=== PATIENT | female | born 1970 | race Asian ===

== ENCOUNTER 2016-12-18 11:16 | Day surgery (SDC) | payer OTHER ==
--- NOTE | 2016-12-10 10:28 | HP ---
Admitting History and Physical - Primary Care Physician PCP: Mich Balderas - Admission Chief Complaint: right breast cancer History of Present Illness: 46 yo female s/p neoadjuvant chemo and right WE, snbx 03/2016, presents now for removal of infusaport. Mammo and US done 10/22/2016 were c/w postop changes without suspicious findings. History Source: Patient Limitations to Obtaining History: No Limitations - Past Medical History Cardiovascular: Yes: HTN ...LMP: 10/05/15 Heme/Onc: Yes: Cancer (right breast cancer 08/2015) - Past Surgical History Past Surgical History: Yes: Hernia Repair (umbilical hernia repair 06/2015) - Smoking History Smoking history: Never smoked Have you smoked in the past 12 months: No - Alcohol/Substance Use Hx Alcohol Use: Yes (RARE) Home Medications - Allergies Allergies/Adverse Reactions: Allergies Allergy/AdvReac Type Severity Reaction Status Date / Time No Known Drug Allergies Allergy Verified 07/20/15 07:11 ENVIRONMENTAL Allergy Intermediate NASAL Uncoded 07/20/15 07:11 CONGESTION/SNEEZING - Home Medications Home Medications: Ambulatory Orders Metoprolol Tartrate 12.5 mg PO DAILY 10/12/15 Family Disease History - Family Disease History Family Disease History: CA: Father (prostate) Other Family History: paternal uncle-CRC Review of Systems - Review of Systems Constitutional: reports: No Symptoms Cardiovascular: reports: No Symptoms Respiratory: reports: No Symptoms Physical Examination Constitutional: Yes: Well Nourished Cardiovascular: Yes: WNL Respiratory: Yes: WNL Breast(s): Yes: Other (Right breast with well healed incision. No suspicious masses or adenopathy noted bilaterally.) Problem List - Problems (1) Breast cancer, right Code(s): C50.911 - MALIGNANT NEOPLASM OF UNSP SITE OF RIGHT FEMALE BREAST Qualifiers: Breast location: lower inner quadrant of breast Qualified Code(s): C50.311 - Malignant neoplasm of lower-inner quadrant of right female breast; Z17.0 - Estrogen receptor positive status [ER+] Assessment/Plan Plan removal of lifeport
[2016-12-13 09:13] VITALS: BMI 23.8
[2016-12-18] MEDS ORDERED: LIDOCAINE HCL 1%, 10 MG/ML (20ML VIAL) ONE (12:51)
[2016-12-18] MEDS ORDERED: MIDAZOLAM HCL 2 MG/2 ML SINGLE DOSE VIAL ONE (13:29)
[2016-12-18] MEDS ORDERED: PROPOFOL 20 ML ONE (13:29)
[2016-12-18] MEDS ORDERED: ONDANSETRON 4 MG/2 ML VIAL ONE (13:36)
[2016-12-18] MEDS ORDERED: KETOROLAC TROMETHAMINE 30 MG/1 ML VIAL ONE (13:36)
[2016-12-18] MEDS ORDERED: DEXAMETHASONE SOD PHOSPHATE 4 MG/1 ML VIAL ONE (13:36)
[2016-12-18] MEDS ORDERED: ONDANSETRON 4 MG/2 ML VIAL IVPB PRN (14:24)
[2016-12-18] MEDS ORDERED: KETOROLAC TROMETHAMINE 30 MG/1 ML VIAL IVPUSH PRN (14:24)
[2016-12-18] MEDS ORDERED: DEXTROSE 5%-0.45% SALINE 1,000 ML IV SCH (14:30)
[2016-12-18 15:02] VITALS: BP 111/72; PULSE 51
[2016-12-18 15:37] VITALS: TEMP 98
--- NOTE | 2016-12-19 07:14 | OP ---
DATE OF OPERATION: 12/18/2016 PREOPERATIVE DIAGNOSIS: History of right lower outer quadrant breast cancer status post partial mastectomy and chemotherapy. POSTOPERATIVE DIAGNOSIS: History of right lower outer quadrant breast cancer status post partial mastectomy and chemotherapy. PROCEDURE: Removal of a left-sided subclavian vein Port-A-Cath. ANESTHESIA: Local with IV sedation. SURGEON: Vale Balderas MD PATTERN AND CHAIN MAKER: SERA Merino COMPLICATIONS: None. INDICATIONS: Briefly, the patient is a 46-year-old premenopausal female of [place] descent with no family history of breast or ovarian cancer. She was diagnosed with a left breast cancer in the lower inner aspect of the right breast back in August of 2015. This was biopsied, showing an ER/DC negative, HER-2 positive cancer, and she underwent neoadjuvant chemotherapy with complete response radiologically. She underwent genetic testing which was negative. She underwent right breast partial mastectomy with sentinel lymph node biopsy in March of 2016, and final pathology showed 2 negative sentinel nodes and a complete pathologic response at the time of the wide excision. All her margins are negative. She underwent external beam radiation which finished in June of 2016. She did receive her chemotherapy through a left-sided subclavian Port-A-Cath which I had placed and now comes in for removal of the Port-A-Cath. DESCRIPTION OF PROCEDURE: The patient was brought in through ambulatory surgery on December 18, 2016. In the holding area site verification was made and informed consent was obtained. She was brought into the operating room and laid on the OR table in the supine position. Venodynes were placed on the lower extremities. The patient received IV sedation. The left chest wall was sterilely prepped and draped in the usual fashion. No antibiotics were given, given the small nature of the procedure. Lidocaine 1% was given directly over the Port-A-Cath site, and an elliptical incision was made, excising the previous scar. Dissection was undertaken around the Port-A-Cath, which was completely excised from the surrounding tissue and completely removed intact and sent to Pathology as specimen. The scar capsule around the Port-A-Cath was excised as well. The subcutaneous tissue was then closed using interrupted 3-0 Vicryl suture. Hemostasis was achieved. The skin was closed using interrupted 3-0 deep dermal Vicryl suture and a running 4-0 subcuticular Biosyn suture. Dermabond was placed over the wound. The patient tolerated the procedure well without difficulty, was awake and alert at the end of the procedure and brought back to the postanesthesia care in stable condition. She will be discharged home the same day once discharge criteria are met. She is to follow up in the office in 1 week just for a formal wound evaluation. VALE BALDERAS M.D. [id number]
--- NOTE | 2016-12-20 08:44 | PATH ---
Surgical Pathology Report Patient Name: JONY WEIR [facility]. Rec. #: [id number] /Age/Gender: 1970 (Age: 46) / F Account: [id number] Location: [facility] AMBULATORY Taken: 12/18/2016 Received: 12/18/2016 Reported: 12/20/2016 Physicians: Mich Balderas M.D. 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 Electronically Signed Panfilo Nielson M.D. Gross Description Received fresh labeled "life port," is a 2.6 x 2.3 x 1.4 cm purple, triangular device, consistent with a life port. The specimen has the following inscription: "BARD [id number]." There is a 17.5 cm in length portion of tubing extending from one aspect. No soft tissue is present. No sections are submitted, gross only. 12/19/2016 [facility]12/19/2016
== END 2016-12-18 15:20 | disposition home or self-care (01) ==
LOC: FASU 11:16
PROVIDERS: ATTEND Surgery Surgical Oncology
PROC: 0JPT0XZ Removal of Tunneled Vascular Access Device from Trunk Subcutaneous Tissue and Fascia, Open Approach (ICD-10-PCS; principal; 2016-12-18 14:48)
DX: Z85.3 Personal history of malignant neoplasm of breast (principal); Z90.11 Acquired absence of right breast and nipple; Z92.21 Personal history of antineoplastic chemotherapy; Z17.0 Estrogen receptor positive status [ER+]; I10 Essential (primary) hypertension
CPT/HCPCS: 84703; 88300-TC